=== PATIENT | female | born 1995 | race Caucasian/White ===

== ENCOUNTER 2021-03-16 06:21 | Inpatient (IN) | payer BC ==
[2021-03-16] MEDS ORDERED: Acetaminophen 325 MG Tab PO PRN (07:40)
[2021-03-16] MEDS ORDERED: Sodium Chloride 0.9% 10 ML Syringe FLUSH PRN ×2 (07:40→12:53)
[2021-03-16] MEDS ORDERED: Misoprostol 25 MCG (1/4 of 100 MCG) Tab PO ONE ×2 (07:46→10:00)
[2021-03-16] MEDS: Ondansetron 4 MG/2 ML SDV IV PRN ×2 (08:12→12:50)
[2021-03-16] MEDS ORDERED: Dextrose 5%-Lactated Ringers 1,000 ML IV SCH (08:15)
[2021-03-16] MEDS ORDERED: Penicillin G Potassium 5 MILLUNITS in Sodium Chloride 0.9% 100 ML IV ONE (09:45)
[2021-03-16] MEDS ORDERED: Misoprostol 25 MCG (1/4 of 100 MCG) Tab ONE (10:20)
[2021-03-16] MEDS ORDERED: Lactated Ringers 500 ML IV ONE (11:32)
[2021-03-16] MEDS ORDERED: diphenhydrAMINE 50 MG/ML SDV IVPUSH PRN ×2 (12:53)
[2021-03-16] MEDS ORDERED: Lactated Ringers 1,000 ML IV ONE (12:53)
[2021-03-16] MEDS ORDERED: ePHEDrine 50 MG/ML SDV IVPUSH PRN ×2 (12:53)
[2021-03-16] MEDS ORDERED: Naloxone 0.4 MG/ML SDV IVPUSH PRN (12:53)
[2021-03-16] MEDS ORDERED: Ropivacaine 200 MG in Premix Bag 1 BAG EPIDUR SCH (13:00)
[2021-03-16] MEDS ORDERED: Ropivacaine 100 ML ONE (13:41)
[2021-03-16] MEDS: Penicillin G Potassium 2.5 MILLUNITS in Sodium Chloride 0.9% 50 ML IV SCH ×2 (13:53→18:56)
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
--- NOTE | 2021-03-16 14:30 | PCM.PNLD ---
Labor Progress Note - VS & Meds Vital Signs: Last Vital Signs Temp 36.4 C 03/16/21 08:44 Pulse 106 H 03/16/21 09:24 Resp 16 03/16/21 07:41 BP 116/68 03/16/21 09:24 Pulse Ox 96 03/16/21 12:54 Active Medications: Current Medications Acetaminophen (Acetaminophen 325 Mg Tab) 650 mg PO Q4H PRN PRN Reason: Pain (Mild 1-3) and fever Last Admin: 03/16/21 11:39 Dose: 650 mg Documented by: Diphenhydramine HCl (Diphenhydramine 50 Mg/Ml Sdv) 25 mg IVPUSH Q6H PRN PRN Reason: Itching Diphenhydramine HCl (Diphenhydramine 50 Mg/Ml Sdv) 50 mg IVPUSH Q6H PRN PRN Reason: Itching Ephedrine Sulfate (Ephedrine 50 Mg/Ml Sdv) 10 mg IVPUSH ASDIRECTED PRN PRN Reason: Hypotension Dextrose/Lactated Ringer's (Dextrose 5%-Lactated Ringers) 1,000 mls @ 100 mls/hr IV ASDIRECTED [facility] Last Admin: 03/16/21 08:19 Dose: 100 mls/hr Documented by: Penicillin G Potassium 2.5 (millunits/ Sodium Chloride) 50 mls @ 100 mls/hr IV Q4H [facility] Last Admin: 03/16/21 13:53 Dose: 100 mls/hr Documented by: Ropivacaine 200 mg/ Premix 100 mls @ 0 mls/hr EPIDUR ASDIRECTED [facility] Naloxone HCl (Naloxone 0.4 Mg/Ml Sdv) 0.1 mg IVPUSH ASDIRECTED PRN PRN Reason: Oversedation Ondansetron HCl (Ondansetron 4 Mg/2 Ml Sdv) 4 mg IV Q4H PRN PRN Reason: Nausea/Vomiting Last Admin: 03/16/21 12:50 Dose: 4 mg Documented by: Sodium Chloride (Sodium Chloride 0.9% 10 Ml Syringe) 10 ml FLUSH ASDIRECTED PRN PRN Reason: Keep Vein Open Sodium Chloride (Sodium Chloride 0.9% 10 Ml Syringe) 10 ml FLUSH ASDIRECTED PRN PRN Reason: Keep Vein Open Discontinued Medications Penicillin G Potassium 5 (millunits/ Sodium Chloride) 100 mls @ 200 mls/hr IV ONETIME ONE Stop: 03/16/21 10:14 Last Admin: 03/16/21 09:56 Dose: 200 mls/hr Documented by: Lactated Ringer's (Ringers, Lactated) 500 mls @ 999 mls/hr IV BOLUS ONE Stop: 03/16/21 12:02 Last Admin: 03/16/21 11:36 Dose: 999 mls/hr Documented by: Lactated Ringer's (Ringers, Lactated) 1,000 mls @ 999 mls/hr IV .BOLUS ONE Stop: 03/16/21 13:53 Last Admin: 03/16/21 13:07 Dose: 999 mls/hr Documented by: Ropivacaine (Naropin 0.2%) Confirm Administered Dose 100 mls @ as directed .ROUTE .STK-MED ONE Stop: 03/16/21 13:42 Misoprostol (Misoprostol 25 Mcg (1/4 Of 100 Mcg) Tab) 25 mcg PO ONETIME ONE Stop: 03/16/21 07:47 Last Admin: 03/16/21 08:16 Dose: 25 mcg Documented by: Misoprostol (Misoprostol 25 Mcg (1/4 Of 100 Mcg) Tab) 25 mcg PO ONETIME ONE Stop: 03/16/21 10:01 Last Admin: 03/16/21 10:23 Dose: 25 mcg Documented by: Misoprostol (Misoprostol 25 Mcg (1/4 Of 100 Mcg) Tab) Confirm Administered Dose 25 mcg .ROUTE .STK-MED ONE Stop: 03/16/21 10:21 Last Admin: 03/16/21 11:17 Dose: Not Given Documented by: - Uterine Contractions Uterine Monitoring Mode: External [place] Contraction Frequency (min): 0.5 - 5 Contraction Duration (sec): 30 - 55 Contraction Intensity: Mild Uterine Resting Tone: Soft Other Uterine Monitoring: Novii adjusted to mixing picker tender uterine contractions - Monitoring Monitor Mode: Wireless Heart Rate (FHR) Baseline: 145 Heart Rate (FHR) Variability: Moderate (6-25 bpm) Accelerations: Present, 15x15 Decelerations: None Strip Review: Category I - Vaginal Exam Dilation (cm): 5 Effacement (Percent): 80 Station: -1 Cervical Position: Midposition Sterile Vaginal Exam Performed By: Shirin Landers - Labor Progress (Free Text) Labor Progress: 03/16/2021 Patient requested an epidural and after comfortable SVE done SVE- AROM of forebag done with patient consent for clear fluid FHTs category one patient comfortable and at bedside Plan- Continue to monitor labor Continue to monitor FHTs Continue epidural for pain management Plan and anticipate a vaginal delivery
[2021-03-16] MEDS ORDERED: Lactated Ringers 1,000 ML IV SCH (16:00)
--- NOTE | 2021-03-16 16:28 | ANES ---
DATE OF SERVICE: 03/16/2021 INDICATION: I was called by the labor department regarding a young lady requesting a labor epidural. I was at the bedside at approximately 1315. A brief history and physical was done with the patient. The patient is overall healthy. She is not on any blood thinners. She does not have any significant health problems. She is allergic to bees. No drug allergies. Risks and benefits including spinal headache, intravascular injection of local anesthetic, and infection were reviewed with the patient. The patient verbalizes her understandings of the risks and benefits and wishes to proceed with the labor epidural at this time. TECHNIQUE: The patient was sat at the edge of the bed. Betadine prep x3 to the lumbar region was done. Sterile drape was placed. 1% lidocaine skin wheal and deep was done. A 17-gauge Tuohy needle was inserted at approximately the L4-L5 position. Loss of resistance was easily achieved. Negative paresthesia, negative heme, negative CSF were noted. Loss of resistance was at approximately 8 cm. Catheter was then threaded through the Touhy needle without difficulty. The Tuohy needle was then taken out. Catheter was pulled back and secured at approximately 16 cm. The patient tolerated that without difficulty. After catheter was secured, they gave a 5 mL test dose. The patient was then laid down in the supine position with left uterine displacement and head of bed slightly elevated. After several minutes, the patient showed no signs of intravascular injection of local anesthetic or subarachnoid block. I then proceeded to give the patient 12 mL of 0.2% ropivacaine bolus via the epidural and started her on a 0.2% ropivacaine drip at 12 mL an hour via the epidural. The patient tolerated the bolus. Heart rate was good. Blood pressure was good after bolus. The patient was having some relief but mostly on the left. Said after about 30 minutes or so her onto the right side, but she was getting a little numbness and tingling on that right side also. We will be available as needed for the patient. [place] Vee CRNA /[id number]
--- NOTE | 2021-03-16 16:32 | PCM.PNLD ---
Labor Progress Note - VS & Meds Vital Signs: Last Vital Signs Temp 97.5 F 03/16/21 08:44 Pulse 101 H 03/16/21 14:52 Resp 16 03/16/21 07:41 BP 116/62 03/16/21 14:52 Pulse Ox 96 03/16/21 12:54 Active Medications: Current Medications Acetaminophen (Acetaminophen 325 Mg Tab) 650 mg PO Q4H PRN PRN Reason: Pain (Mild 1-3) and fever Last Admin: 03/16/21 11:39 Dose: 650 mg Documented by: Diphenhydramine HCl (Diphenhydramine 50 Mg/Ml Sdv) 25 mg IVPUSH Q6H PRN PRN Reason: Itching Diphenhydramine HCl (Diphenhydramine 50 Mg/Ml Sdv) 50 mg IVPUSH Q6H PRN PRN Reason: Itching Ephedrine Sulfate (Ephedrine 50 Mg/Ml Sdv) 10 mg IVPUSH ASDIRECTED PRN PRN Reason: Hypotension Penicillin G Potassium 2.5 (millunits/ Sodium Chloride) 50 mls @ 100 mls/hr IV Q4H [facility] Last Admin: 03/16/21 13:53 Dose: 100 mls/hr Documented by: Ropivacaine 200 mg/ Premix 100 mls @ 0 mls/hr EPIDUR ASDIRECTED [facility] Lactated Ringer's (Ringers, Lactated) 1,000 mls @ 100 mls/hr IV ASDIRECTED [facility] Last Admin: 03/16/21 15:57 Dose: 100 mls/hr Documented by: Oxytocin/Sodium Chloride (Pitocin In Ns 20 Units/1,000 Ml) 20 unit in 1,000 mls @ 3 mls/hr IV TITRATE [facility]; Protocol Naloxone HCl (Naloxone 0.4 Mg/Ml Sdv) 0.1 mg IVPUSH ASDIRECTED PRN PRN Reason: Oversedation Ondansetron HCl (Ondansetron 4 Mg/2 Ml Sdv) 4 mg IV Q4H PRN PRN Reason: Nausea/Vomiting Last Admin: 03/16/21 12:50 Dose: 4 mg Documented by: Sodium Chloride (Sodium Chloride 0.9% 10 Ml Syringe) 10 ml FLUSH ASDIRECTED PRN PRN Reason: Keep Vein Open Sodium Chloride (Sodium Chloride 0.9% 10 Ml Syringe) 10 ml FLUSH ASDIRECTED PRN PRN Reason: Keep Vein Open Discontinued Medications Dextrose/Lactated Ringer's (Dextrose 5%-Lactated Ringers) 1,000 mls @ 100 mls/hr IV ASDIRECTED [facility] Last Admin: 03/16/21 08:19 Dose: 100 mls/hr Documented by: Penicillin G Potassium 5 (millunits/ Sodium Chloride) 100 mls @ 200 mls/hr IV ONETIME ONE Stop: 03/16/21 10:14 Last Admin: 03/16/21 09:56 Dose: 200 mls/hr Documented by: Lactated Ringer's (Ringers, Lactated) 500 mls @ 999 mls/hr IV BOLUS ONE Stop: 03/16/21 12:02 Last Admin: 03/16/21 11:36 Dose: 999 mls/hr Documented by: Lactated Ringer's (Ringers, Lactated) 1,000 mls @ 999 mls/hr IV .BOLUS ONE Stop: 03/16/21 13:53 Last Admin: 03/16/21 13:07 Dose: 999 mls/hr Documented by: Ropivacaine (Naropin 0.2%) Confirm Administered Dose 100 mls @ as directed .ROUTE .STK-MED ONE Stop: 03/16/21 13:42 Misoprostol (Misoprostol 25 Mcg (1/4 Of 100 Mcg) Tab) 25 mcg PO ONETIME ONE Stop: 03/16/21 07:47 Last Admin: 03/16/21 08:16 Dose: 25 mcg Documented by: Misoprostol (Misoprostol 25 Mcg (1/4 Of 100 Mcg) Tab) 25 mcg PO ONETIME ONE Stop: 03/16/21 10:01 Last Admin: 03/16/21 10:23 Dose: 25 mcg Documented by: Misoprostol (Misoprostol 25 Mcg (1/4 Of 100 Mcg) Tab) Confirm Administered Dose 25 mcg .ROUTE .STK-MED ONE Stop: 03/16/21 10:21 Last Admin: 03/16/21 11:17 Dose: Not Given Documented by: - Uterine Contractions Uterine Monitoring Mode: External [place] Contraction Frequency (min): 1.5-4 Contraction Duration (sec): 40-65 Contraction Intensity: Mild Uterine Resting Tone: Soft Other Uterine Monitoring: changed battery - Monitoring Monitor Mode: Wireless Heart Rate (FHR) Baseline: 140 Heart Rate (FHR) Variability: Moderate (6-25 bpm) Accelerations: Present, 15x15 Decelerations: None Strip Review: Category I - Vaginal Exam Dilation (cm): 9 Effacement (Percent): 95 Station: -1 Cervical Position: Anterior Sterile Vaginal Exam Performed By: Venancio White - Labor Progress (Free Text) Labor Progress: 03/16/2021 At 1600, contractions had spaced to every 5 minutes. SVE was /-1. EFM shows baseline of 135bpm with moderate variability, positive for accelerations, no decelerations, and contractions every 3-5 minutes. She continues to leak clear fluid. VSS. Pt is resting comfortably with an epidural and her is here for support. Plan: Continue to monitor pain control with the epidural in place Continue to monitor IV intake and output to ensure adequate hydration Continue to monitor heart tones. Start pitocin per protocol and monitor frequency of contractions Labor down to allow descent into the pelvis, recheck station in one hour. Continue to monitor labor progress.
[2021-03-16] MEDS ORDERED: Misoprostol 200 MCG Tab ONE (19:02)
[2021-03-16] MEDS ORDERED: Methylergonovine 0.2 MG/1 ML Amp ONE (19:03)
[2021-03-16] MEDS ORDERED: Carboprost Tromethamine 250 MCG/1 ML Amp ONE (19:03)
[2021-03-16] MEDS ORDERED: Ibuprofen 200 MG Tab, 24 Tab Bulk Bottle PO PRN (20:26)
[2021-03-16] MEDS ORDERED: Witch Hazel Medicated Pads 100/Jar TOP ONE (20:26)
[2021-03-16] MEDS ORDERED: Lanolin 100% Cream 40 GM Tube TOP ONE (20:26)
[2021-03-16] MEDS ORDERED: Benzocaine 20% Top Spray 56 GM Bottle TOP ONE (20:26)
[2021-03-16] MEDS ORDERED: Acetaminophen 325 MG Tab, 50 Tab Bulk Bottle PO PRN (20:26)
[2021-03-16] MEDS ORDERED: Docusate Sodium 100 MG Cap PO PRN (20:26)
--- NOTE | 2021-03-17 08:27 | PCM.DEL ---
<Lorena White A - Last Filed: 03/17/21 08:21> L & D Note - General Info Date of Service: 03/16/21 - Delivery Note Labor: Augmented by Oxytocin, Induced by ARM Cervical Ripening Method: Misoprostil Delivery Outcome: Livebirth Infant Delivery Method: Spontaneous Vaginal Delivery-Single Delivery Mode: Manual Presentation: Left Occiput Anterior (ROMMEL) Nuchal Cord: None Anesthesia Type: Epidural Amniotic Fluid Description: Purulent Episiotomy Type: None Laceration: 2nd Degree, Perineal Suture type: Vicryl Suture size: 3-0 Placenta: Intact, Spontaneous Cord: 3 Vessels Resuscitation Needed: No : Bulb Syringe, Stimulated, [place] Used Provider: Shirin Keita Score 1 min: 8 Score 5 min: 9 Second Stage Interventions: Reports: Second Nurse Assessed Progress of Descent, Second Nurse Reviewed Contraction Pattern, Second Nurse Reviewed Heart Tones, Encouragement Given, Laboring Down, Pushing, Stirrups/Leg Supports - General Info Date of Service: 03/16/21 Admission Dx/Problem (Free Text): Normal Spontaneous Vaginal Delivery Functional Status: Reports: Pain Controlled, Tolerating Diet, Ambulating, Urinating - Review of Systems General: Reports: No Symptoms HEENT: Reports: No Symptoms Pulmonary: Reports: No Symptoms Cardiovascular: Reports: No Symptoms Gastrointestinal: Reports: Diarrhea, Nausea, Vomiting Genitourinary: Reports: No Symptoms Musculoskeletal: Reports: No Symptoms Skin: Reports: Pallor Neurological: Reports: No Symptoms Psychiatric: Reports: No Symptoms - Patient Data Vitals - Most Recent: Last Vital Signs Temp 97.7 F 03/17/21 03:33 Pulse 77 03/17/21 03:33 Resp 16 03/17/21 03:33 BP 103/47 L 03/17/21 03:33 Pulse Ox 98 03/17/21 03:33 Weight - Most Recent: 99.79 kg I&O - Last 24 Hours: Intake & Output 03/16/21 03/17/21 03/17/21 22:59 06:59 14:59 Output Total 1100 Balance -1100 Lab Results Last 24 Hours: Laboratory Results - last 24 hr 03/17/21 03/17/21 Range/Units 05:40 05:40 WBC 9.7 (4.5-11.0) K/uL RBC 3.48 (3.30-5.50) M/uL Hgb 10.1 L D (12.0-15.0) g/dL Hct 30.8 L (36.0-48.0) % MCV 89 (80-98) fL MCH 29 (27-31) pg MCHC 33 (32-36) % Plt Count 213 (150-400) K/uL Neut % (Auto) 72.0 H (36-66) % Lymph % (Auto) 15.1 L (24-44) % Lyman % (Auto) 12.3 H (2-6) % Eos % (Auto) 0.5 L (2-4) % Baso % (Auto) 0.1 (0-1) % Sodium 135 L (140-148) mmol/L Potassium 3.9 (3.6-5.2) mmol/L Chloride 104 (100-108) mmol/L Carbon Dioxide 22 (21-32) mmol/L Anion Gap 12.9 (5.0-14.0) mmol/L BUN 4 L D (7-18) mg/dL Creatinine 0.5 L (0.6-1.0) mg/dL Est Cr Clr Drug Dosing 187.61 mL/min Estimated GFR (MDRD) > 60 (>60) Glucose 78 (74-106) mg/dL Calcium 7.2 L (8.5-10.1) mg/dL Total Bilirubin 0.2 (0.2-1.0) mg/dL AST 24 (15-37) U/L ALT 21 (12-78) U/L Alkaline Phosphatase 89 (46-116) U/L Total Protein 4.2 L (6.4-8.2) g/dL Albumin 1.7 L (3.4-5.0) g/dL Globulin 2.5 (2.3-3.5) g/dL Albumin/Globulin Ratio 0.7 L (1.2-2.2) Med Orders - Current: Current Medications Acetaminophen (Acetaminophen 325 Mg Tab) 650 mg PO Q4H PRN PRN Reason: Pain (Mild 1-3) and fever Last Admin: 03/16/21 11:39 Dose: 650 mg Documented by: Acetaminophen (Acetaminophen 325 Mg Tab, 50 Tab Bulk Bottle) 325 - 650 mg PO Q4H PRN PRN Reason: Pain Last Admin: 03/16/21 21:46 Dose: 1 bottle Documented by: Diphenhydramine HCl (Diphenhydramine 50 Mg/Ml Sdv) 25 mg IVPUSH Q6H PRN PRN Reason: Itching Diphenhydramine HCl (Diphenhydramine 50 Mg/Ml Sdv) 50 mg IVPUSH Q6H PRN PRN Reason: Itching Docusate Sodium (Docusate Sodium 100 Mg Cap) 100 mg PO BID PRN PRN Reason: Constipation Ephedrine Sulfate (Ephedrine 50 Mg/Ml Sdv) 10 mg IVPUSH ASDIRECTED PRN PRN Reason: Hypotension Ropivacaine 200 mg/ Premix 100 mls @ 0 mls/hr EPIDUR ASDIRECTED [facility] Last Admin: 03/16/21 19:06 Dose: 12 mls/hr Documented by: Lactated Ringer's (Ringers, Lactated) 1,000 mls @ 100 mls/hr IV ASDIRECTED [facility] Last Admin: 03/16/21 15:57 Dose: 100 mls/hr Documented by: Oxytocin/Sodium Chloride (Pitocin In Ns 20 Units/1,000 Ml) 20 unit in 1,000 mls @ 3 mls/hr IV TITRATE [facility]; Protocol Last Admin: 03/16/21 17:31 Dose: 3 munits/min, 9 mls/hr Documented by: Ibuprofen (Ibuprofen 200 Mg Tab, 24 Tab Bulk Bottle) 600 mg PO Q6H PRN PRN Reason: Pain Last Admin: 03/16/21 21:45 Dose: 1 bottle Documented by: Lactobacillus Rhamnosus (Lactobacillus Rhamnosus Gg (Probiotic) Cap) 1 cap PO DAILY ASHANTI Naloxone HCl (Naloxone 0.4 Mg/Ml Sdv) 0.1 mg IVPUSH ASDIRECTED PRN PRN Reason: Oversedation Ondansetron HCl (Ondansetron 4 Mg/2 Ml Sdv) 4 mg IV Q4H PRN PRN Reason: Nausea/Vomiting Last Admin: 03/16/21 12:50 Dose: 4 mg Documented by: Prenat Multivit/[place]/Iron/Folic Ac ( Multivitamin With Calcium/Folic Acid/Iron Tab) 1 each PO DAILY [facility] Sodium Chloride (Sodium Chloride 0.9% 10 Ml Syringe) 10 ml FLUSH ASDIRECTED PRN PRN Reason: Keep Vein Open Sodium Chloride (Sodium Chloride 0.9% 10 Ml Syringe) 10 ml FLUSH ASDIRECTED PRN PRN Reason: Keep Vein Open Discontinued Medications Benzocaine (Benzocaine 20% Top [place] 56 Gm Bottle) 0 gm TOP ONETIME ONE Stop: 03/16/21 20:27 Last Admin: 03/16/21 21:44 Dose: 56 gm Documented by: Carboprost Tromethamine (Carboprost Tromethamine 250 Mcg/1 Ml Amp) Confirm Administered Dose 250 mcg .ROUTE .STK-MED ONE Stop: 03/16/21 19:04 Last Admin: 03/16/21 21:07 Dose: Not Given Documented by: Emollient Ointment (Lanolin 100% Cream 40 Gm Tube) 0 gm TOP ONETIME ONE Stop: 03/16/21 20:27 Last Admin: 03/16/21 21:44 Dose: 40 gm Documented by: Dextrose/Lactated Ringer's (Dextrose 5%-Lactated Ringers) 1,000 mls @ 100 mls/hr IV ASDIRECTED [facility] Last Admin: 03/16/21 08:19 Dose: 100 mls/hr Documented by: Penicillin G Potassium 5 (millunits/ Sodium Chloride) 100 mls @ 200 mls/hr IV ONETIME ONE Stop: 03/16/21 10:14 Last Admin: 03/16/21 09:56 Dose: 200 mls/hr Documented by: Penicillin G Potassium 2.5 (millunits/ Sodium Chloride) 50 mls @ 100 mls/hr IV Q4H [facility] Last Admin: 03/16/21 18:56 Dose: 100 mls/hr Documented by: Lactated Ringer's (Ringers, Lactated) 500 mls @ 999 mls/hr IV BOLUS ONE Stop: 03/16/21 12:02 Last Admin: 03/16/21 11:36 Dose: 999 mls/hr Documented by: Lactated Ringer's (Ringers, Lactated) 1,000 mls @ 999 mls/hr IV .BOLUS ONE Stop: 03/16/21 13:53 Last Admin: 03/16/21 13:07 Dose: 999 mls/hr Documented by: Ropivacaine (Naropin 0.2%) Confirm Administered Dose 100 mls @ as directed .ROUTE .STK-MED ONE Stop: 03/16/21 13:42 Methylergonovine Maleate (Methylergonovine 0.2 Mg/1 Ml Amp) Confirm Administered Dose 0.2 mg .ROUTE .STK-MED ONE Stop: 03/16/21 19:04 Last Admin: 03/16/21 21:08 Dose: Not Given Documented by: Misoprostol (Misoprostol 25 Mcg (1/4 Of 100 Mcg) Tab) 25 mcg PO ONETIME ONE Stop: 03/16/21 07:47 Last Admin: 03/16/21 08:16 Dose: 25 mcg Documented by: Misoprostol (Misoprostol 25 Mcg (1/4 Of 100 Mcg) Tab) 25 mcg PO ONETIME ONE Stop: 03/16/21 10:01 Last Admin: 03/16/21 10:23 Dose: 25 mcg Documented by: Misoprostol (Misoprostol 25 Mcg (1/4 Of 100 Mcg) Tab) Confirm Administered Dose 25 mcg .ROUTE .STK-MED ONE Stop: 03/16/21 10:21 Last Admin: 03/16/21 11:17 Dose: Not Given Documented by: Misoprostol (Misoprostol 200 Mcg Tab) Confirm Administered Dose 800 mcg .ROUTE .STK-MED ONE Stop: 03/16/21 19:03 Last Admin: 03/16/21 21:07 Dose: Not Given Documented by: Christel Borden (Witch Suha Medicated Pads 100/Jar) 1 pad TOP ONETIME ONE Stop: 03/16/21 20:27 Last Admin: 03/16/21 21:45 Dose: 1 pad Documented by: - Exam Urinary Catheter Total Time: 0Days 7Hours General: Alert, Oriented HEENT: Pupils Equal, Pupils Reactive, Mucous Membr. Moist/[place] Neck: Supple Lungs: Clear to Auscultation, Normal Respiratory Effort Cardiovascular: Regular Rate, Regular Rhythm, No Murmurs GI/Abdominal Exam: Normal Bowel Sounds, Soft, Non-Tender (Female) Exam: Normal External Exam Back Exam: Normal Inspection, Full Range of Motion Extremities: Normal Inspection, Normal Range of Motion, Non-Tender, No Pedal Edema, Normal Capillary Refill Skin: Warm, Dry, Intact Neurological: No New Focal Deficit Psy/Mental Status: Alert, Normal Affect, Normal Mood - Problem List & Annotations (1) (normal spontaneous vaginal delivery) SNOMED Code(s): 05999122, 551592632 Code(s): O80 - ENCOUNTER FOR FULL-TERM UNCOMPLICATED DELIVERY Status: Acute Current Visit: Yes (2) Perineal laceration SNOMED Code(s): 716204806 Code(s): WVK2398 - Status: Acute Current Visit: Yes (3) (infant) SNOMED Code(s): 120873385 Code(s): Z78.9 - OTHER SPECIFIED HEALTH STATUS Status: Acute Current Visit: Yes (4) Diarrhea SNOMED Code(s): 79137905 Code(s): R19.7 - DIARRHEA, UNSPECIFIED Status: Acute Current Visit: Yes (5) Elevated WBC count SNOMED Code(s): 461157539, 190716191 Code(s): D72.829 - ELEVATED WHITE BLOOD CELL COUNT, UNSPECIFIED Status: Acute Current Visit: Yes (6) Nausea and vomiting SNOMED Code(s): 33635814 Code(s): R11.2 - NAUSEA WITH VOMITING, UNSPECIFIED Status: Acute Current Visit: Yes (7) SNOMED Code(s): 52180984 Code(s): Z34.90 - ENCNTR FOR SUPRVSN OF NORMAL , UNSP, UNSP TRIMESTER Status: Acute Current Visit: Yes Qualifiers: Weeks of gestation: 39 weeks Qualified Code(s): Z3A.39 - 39 weeks gestation of (8) SROM (spontaneous rupture of membranes) SNOMED Code(s): 022770660 Code(s): VYY0101 - Status: Acute Current Visit: Yes - My Orders Last 24 Hours: My Active Orders 03/16/21 16:15 Oxytocin/Normal Saline [Pitocin in NS 20 Units/1,000 ML] 20 unit in 1,000 ml IV TITRATE - Assessment Assessment:: 03/16/21 Iva is a 25 year old G1 now P1 who delivered at 39 weeks 0 days gestation. She came in this morning at about 0400 with spontaneous rupture of membranes, clear fluid. She has been experiencing on and off nausea, vomiting, and diarrhea for the past week, for which she was evaluated and started antibiotics last night. She presents today with no fever but continued GI upset. Her course of labor progressed today with a total of 2 doses of oral cytotec, pitocin titrated per protocol, and AROM of a forebag for clear fluid. At 1600 she was 9/95/-1 and comfortable with an epidural so she labored down for about an hour. At 1715 she was complete but still -1/0 station with some caput and continued to labor down. heart tones were category 1 up until this point. At 175, she began pushing and EFM showed occasional variables. Due to variables, pushing was stopped for 15 minutes with mom on her right side, and O2 to allow baby to recover. When pushing restarted, FHT were again category 1 and pushing was more effective. Iva was pushing in McRobert's position due to supspected LGA fe tus, and perineum was massaged and lubricated as baby began to crown. Baby boy was born at 1937 with apgars 8 and 9 by . He weighed 9lbs 6oz. The placenta was expressed spontaneously at 1949 and was intact with a 3 vessel cord. A 2nd degree perineal laceration was repaired in usual fashion. EBL was 250mL Post delivery, Iva was transferred to a recovery room in stable condition and baby stayed rooming in with parents in stable condition. Stages of labor: 1st stage: 1481-4124 2nd stage: 4946-9804 3rd stage: 9765-5382 - Plan Plan:: 03/16/2021 25 yo here at 39 0/7 weeks with SROM. Patient had been here last evening with nausea and vomiting and had went home after IV fluids and zofran and contractions had stopped and she felt better, then at 0430 her water broke at home and she called and was directed to come back in to labor and delivery. On arrival patient had positive Amnisure SVE was unchanged from night before Patient was still struggling with nausea and vomiting FHTs category one Labs-AB positive, Hep B neg, Hep C neg, HIV neg, RPR nonreactive, Rubella Immune, GBS negative WBC-18.0 Plan- Monitor for active labor Monitor FHTs Start D5LR for dehydration Oral cytotec times two doses Pain management per patient request Plan and anticipate a vaginal delivery 03/17/21 Routine cares Encourage and support Monitor bleeding closely Expect discharge in 48 hours due to high WBC CBC and BMP in AM <Shirin Keita - Last Filed: 03/17/21 09:07> L & D Note - General Info Mother's Due Date: 03/23/21 - Delivery Note Labor: Augmented by ARM, Induced by ARM Delivery Mode: Spontaneous (error placed manual) Second Stage Interventions: Reports: Pushing Effectively, Pushing, McRobert's Position Delivery Comments (Free Text/Narrative):: 03/16/21 Iva is a 25 year old G1 now P1 who delivered at 39 weeks 0 days gestation. She came in this morning at about 0400 with spontaneous rupture of membranes, clear fluid. She has been experiencing on and off nausea, vomiting, and diarrhea for the past week, for which she was evaluated and started antibiotics last night. She presents today with no fever but continued GI upset. Her course of labor progressed today with a total of 2 doses of oral cytotec, pitocin titrated per protocol, and AROM of a forebag for clear fluid. At 1600 she was 9/95/-1 and comfortable with an epidural so she labored down for about an hour. At 1715 she was complete but still -1/0 station with some caput and continued to labor down. heart tones were category 1 up until this point. At 1750, she began pushing and EFM showed occasional variables. Due to variables, pushing was stopped for 15 minutes with mom on her right side, and O2 to allow baby to recover. When pushing restarted, FHT were again category 1 and pushing was more effective. Iva was pushing in McRobert's position due to supspected LGA fetus , and perineum was massaged and lubricated as baby began to crown. Baby boy was born at 193 with apgars 8 and 9 by . He weighed 9lbs 6oz. The placenta was expressed spontaneously at 1949 and was intact with a 3 vessel cord. A 2nd degree perineal laceration was repaired in usual fashion. EBL was 250mL Post delivery, Iva was transferred to a recovery room in stable condition and baby stayed rooming in with parents in stable condition. Stages of labor: 1st stage: 3544-9820 2nd stage: 3127-8137 3rd stage: 8584-4765 - Review of Systems General: Reports: Weakness, Fatigue - Patient Data Vitals - Most Recent: Last Vital Signs Temp 36.5 C 03/17/21 03:33 Pulse 77 03/17/21 03:33 Resp 16 03/17/21 03:33 BP 103/47 L 03/17/21 03:33 Pulse Ox 98 03/17/21 03:33 I&O - Last 24 Hours: Intake & Output 03/16/21 03/17/21 03/17/21 22:59 06:59 14:59 Output Total 1100 Balance -1100 Lab Results Last 24 Hours: Laboratory Results - last 24 hr 03/17/21 03/17/21 Range/Units 05:40 05:40 WBC 9.7 (4.5-11.0) K/uL RBC 3.48 (3.30-5.50) M/uL Hgb 10.1 L D (12.0-15.0) g/dL Hct 30.8 L (36.0-48.0) % MCV 89 (80-98) fL MCH 29 (27-31) pg MCHC 33 (32-36) % Plt Count 213 (150-400) K/uL Neut % (Auto) 72.0 H (36-66) % Lymph % (Auto) 15.1 L (24-44) % Lyman % (Auto) 12.3 H (2-6) % Eos % (Auto) 0.5 L (2-4) % Baso % (Auto) 0.1 (0-1) % Sodium 135 L (140-148) mmol/L Potassium 3.9 (3.6-5.2) mmol/L Chloride 104 (100-108) mmol/L Carbon Dioxide 22 (21-32) mmol/L Anion Gap 12.9 (5.0-14.0) mmol/L BUN 4 L D (7-18) mg/dL Creatinine 0.5 L (0.6-1.0) mg/dL Est Cr Clr Drug Dosing 187.61 mL/min Estimated GFR (MDRD) > 60 (>60) Glucose 78 (74-106) mg/dL Calcium 7.2 L (8.5-10.1) mg/dL Total Bilirubin 0.2 (0.2-1.0) mg/dL AST 24 (15-37) U/L ALT 21 (12-78) U/L Alkaline Phosphatase 89 (46-116) U/L Total Protein 4.2 L (6.4-8.2) g/dL Albumin 1.7 L (3.4-5.0) g/dL Globulin 2.5 (2.3-3.5) g/dL Albumin/Globulin Ratio 0.7 L (1.2-2.2) Med Orders - Current: Current Medications Acetaminophen (Acetaminophen 325 Mg Tab) 650 mg PO Q4H PRN PRN Reason: Pain (Mild 1-3) and fever Last Admin: 03/16/21 11:39 Dose: 650 mg Documented by: Acetaminophen (Acetaminophen 325 Mg Tab, 50 Tab Bulk Bottle) 325 - 650 mg PO Q4H PRN PRN Reason: Pain Last Admin: 03/16/21 21:46 Dose: 1 bottle Documented by: Diphenhydramine HCl (Diphenhydramine 50 Mg/Ml Sdv) 25 mg IVPUSH Q6H PRN PRN Reason: Itching Diphenhydramine HCl (Diphenhydramine 50 Mg/Ml Sdv) 50 mg IVPUSH Q6H PRN PRN Reason: Itching Docusate Sodium (Docusate Sodium 100 Mg Cap) 100 mg PO BID PRN PRN Reason: Constipation Ephedrine Sulfate (Ephedrine 50 Mg/Ml Sdv) 10 mg IVPUSH ASDIRECTED PRN PRN Reason: Hypotension Ropivacaine 200 mg/ Premix 100 mls @ 0 mls/hr EPIDUR ASDIRECTED [facility] Last Admin: 03/16/21 19:06 Dose: 12 mls/hr Documented by: Lactated Ringer's (Ringers, Lactated) 1,000 mls @ 100 mls/hr IV ASDIRECTED [facility] Last Admin: 03/16/21 15:57 Dose: 100 mls/hr Documented by: Oxytocin/Sodium Chloride (Pitocin In Ns 20 Units/1,000 Ml) 20 unit in 1,000 mls @ 3 mls/hr IV TITRATE [facility]; Protocol Last Admin: 03/16/21 17:31 Dose: 3 munits/min, 9 mls/hr Documented by: Ibuprofen (Ibuprofen 200 Mg Tab, 24 Tab Bulk Bottle) 600 mg PO Q6H PRN PRN Reason: Pain Last Admin: 03/16/21 21:45 Dose: 1 bottle Documented by: Lactobacillus Rhamnosus (Lactobacillus Rhamnosus Gg (Probiotic) Cap) 1 cap PO DAILY ASHANTI Naloxone HCl (Naloxone 0.4 Mg/Ml Sdv) 0.1 mg IVPUSH ASDIRECTED PRN PRN Reason: Oversedation Ondansetron HCl (Ondansetron 4 Mg/2 Ml Sdv) 4 mg IV Q4H PRN PRN Reason: Nausea/Vomiting Last Admin: 03/16/21 12:50 Dose: 4 mg Documented by: [place] Multivit/[place]/Iron/Folic Ac ( Multivitamin With Calcium/Folic Acid/Iron Tab) 1 each PO DAILY ASHANTI Sodium Chloride (Sodium Chloride 0.9% 10 Ml Syringe) 10 ml FLUSH ASDIRECTED PRN PRN Reason: Keep Vein Open Sodium Chloride (Sodium Chloride 0.9% 10 Ml Syringe) 10 ml FLUSH ASDIRECTED PRN PRN Reason: Keep Vein Open Discontinued Medications Benzocaine (Benzocaine 20% Top [place] 56 Gm Bottle) 0 gm TOP ONETIME ONE Stop: 03/16/21 20:27 Last Admin: 03/16/21 21:44 Dose: 56 gm Documented by: Carboprost Tromethamine (Carboprost Tromethamine 250 Mcg/1 Ml Amp) Confirm Administered Dose 250 mcg .ROUTE .STK-MED ONE Stop: 03/16/21 19:04 Last Admin: 03/16/21 21:07 Dose: Not Given Documented by: Emollient Ointment (Lanolin 100% Cream 40 Gm Tube) 0 gm TOP ONETIME ONE Stop: 03/16/21 20:27 Last Admin: 03/16/21 21:44 Dose: 40 gm Documented by: Dextrose/Lactated Ringer's (Dextrose 5%-Lactated Ringers) 1,000 mls @ 100 mls/hr IV ASDIRECTED [facility] Last Admin: 03/16/21 08:19 Dose: 100 mls/hr Documented by: Penicillin G Potassium 5 (millunits/ Sodium Chloride) 100 mls @ 200 mls/hr IV ONETIME ONE Stop: 03/16/21 10:14 Last Admin: 03/16/21 09:56 Dose: 200 mls/hr Documented by: Penicillin G Potassium 2.5 (millunits/ Sodium Chloride) 50 mls @ 100 mls/hr IV Q4H [facility] Last Admin: 03/16/21 18:56 Dose: 100 mls/hr Documented by: Lactated Ringer's (Ringers, Lactated) 500 mls @ 999 mls/hr IV BOLUS ONE Stop: 03/16/21 12:02 Last Admin: 03/16/21 11:36 Dose: 999 mls/hr Documented by: Lactated Ringer's (Ringers, Lactated) 1,000 mls @ 999 mls/hr IV .BOLUS ONE Stop: 03/16/21 13:53 Last Admin: 03/16/21 13:07 Dose: 999 mls/hr Documented by: Ropivacaine (Naropin 0.2%) Confirm Administered Dose 100 mls @ as directed .ROUTE .STK-MED ONE Stop: 03/16/21 13:42 Methylergonovine Maleate (Methylergonovine 0.2 Mg/1 Ml Amp) Confirm Administered Dose 0.2 mg .ROUTE .STK-MED ONE Stop: 03/16/21 19:04 Last Admin: 03/16/21 21:08 Dose: Not Given Documented by: Misoprostol (Misoprostol 25 Mcg (1/4 Of 100 Mcg) Tab) 25 mcg PO ONETIME ONE Stop: 03/16/21 07:47 Last Admin: 03/16/21 08:16 Dose: 25 mcg Documented by: Misoprostol (Misoprostol 25 Mcg (1/4 Of 100 Mcg) Tab) 25 mcg PO ONETIME ONE Stop: 03/16/21 10:01 Last Admin: 03/16/21 10:23 Dose: 25 mcg Documented by: Misoprostol (Misoprostol 25 Mcg (1/4 Of 100 Mcg) Tab) Confirm Administered Dose 25 mcg .ROUTE .STK-MED ONE Stop: 03/16/21 10:21 Last Admin: 03/16/21 11:17 Dose: Not Given Documented by: Misoprostol (Misoprostol 200 Mcg Tab) Confirm Administered Dose 800 mcg .ROUTE .STK-MED ONE Stop: 03/16/21 19:03 Last Admin: 03/16/21 21:07 Dose: Not Given Documented by: Christel Borden ([place] Suha Medicated Pads 100/Jar) 1 pad TOP ONETIME ONE Stop: 03/16/21 20:27 Last Admin: 03/16/21 21:45 Dose: 1 pad Documented by: - Exam General: Cooperative (Female) Exam: Normal Speculum Exam, Normal Bimanual Exam, Enlarged Uterus, Vaginal Bleeding Wound/Incisions: Healing Well - Problem List & Annotations (1) SNOMED Code(s): 71469426 Code(s): Z34.90 - ENCNTR FOR SUPRVSN OF NORMAL , UNSP, UNSP TRIMESTER Status: Acute Current Visit: Yes Qualifiers: Weeks of gestation: 39 weeks Qualified Code(s): Z3A.39 - 39 weeks gestation of (2) SROM (spontaneous rupture of membranes) SNOMED Code(s): 971412725 Code(s): XAN8297 - Status: Acute Current Visit: Yes (3) Nausea and vomiting SNOMED Code(s): 23204565 Code(s): R11.2 - NAUSEA WITH VOMITING, UNSPECIFIED Status: Acute Current Visit: Yes - Problem List Review Problem List Initiated/Reviewed/Updated: Yes - My Orders Last 24 Hours: My Active Orders 03/16/21 12:53 Communication Order [RC] ASDIRECTED Communication Order [RC] ROUTINE Communication Order [RC] ROUTINE Communication Order [RC] ROUTINE Oxygen Therapy [RC] ASDIRECTED Pulse Oximetry [RC] ASDIRECTED Vital Signs [RC] PER UNIT ROUTINE Naloxone [Narcan] 0.1 mg IVPUSH ASDIRECTED PRN Sodium Chloride 0.9% [Saline Flush] 10 ml FLUSH ASDIRECTED PRN diphenhydrAMINE [Benadryl] 25 mg IVPUSH Q6H PRN diphenhydrAMINE [Benadryl] 50 mg IVPUSH Q6H PRN ePHEDrine [ePHEDrine sulfate] 10 mg IVPUSH ASDIRECTED PRN Epidural Catheter Management [OM.PC] Routine Epidural Catheter Management [OM.PC] Urgent Peripheral IV Insertion Pediatric [OM.PC] Routine 03/16/21 12:54 Peripheral IV Care [RC] Q12H 03/16/21 13:00 Insert Urinary Catheter [OM.PC] ASDIRECTED Ropivacaine [Naropin 0.2%] 200 mg Premix Bag 1 bag EPIDUR ASDIRECTED 03/16/21 16:00 Lactated Ringers [Ringers, Lactated] 1,000 ml IV ASDIRECTED 03/16/21 20:26 May Shower [RC] ASDIRECTED Up ad Roselia [RC] ASDIRECTED Consult to Analytical Research Program Manager [CONS] Routine Acetaminophen [Tylenol Bulk Bottle] 325 - 650 mg PO Q4H PRN Docusate Sodium [Colace] 100 mg PO BID PRN Ibuprofen [Motrin Bulk Bottle] 600 mg PO Q6H PRN Assess Lochia [WOMSER] Per Unit Routine Assess Uterine Involution [WOMSER] Per Unit Routine 03/16/21 20:27 Patient Status [ADT] Routine Vital Signs [RC] PFP 03/16/21 20:28 Ice Therapy [OM.PC] Per Unit Routine Perineal Care [OM.PC] Per Unit Routine Sitz Bath [OM.PC] Per Unit Routine 03/17/21 09:00 Lactobacillus Rhamnosus GG [Culturelle] 1 cap PO DAILY Vit with Ca/FA/Iron [ Plus Iron] 1 each PO DAILY - Assessment Assessment:: error entered in wrong area of chart- Assessment- 03/16/2021 without complications LGA infant 2nd degree perineal laceration Fundus firm and bleeding decreasing
[2021-03-17] MEDS: Lactobacillus Rhamnosus GG (Probiotic) Cap PO SCH (09:13)
[2021-03-17] MEDS: Prenatal Multivitamin with Calcium/Folic Acid/Iron Tab PO SCH (09:13)
--- NOTE | 2021-03-17 09:20 | PCM.PNPP ---
<Lorena White - Last Filed: 03/17/21 09:15> - General Info Date of Service: 03/17/21 Admission Dx/Problem (Free Text): Functional Status: Reports: Pain Controlled - Review of Systems General: Reports: No Symptoms HEENT: Reports: No Symptoms Pulmonary: Reports: No Symptoms Cardiovascular: Reports: No Symptoms Gastrointestinal: Reports: Diarrhea Genitourinary: Reports: No Symptoms Musculoskeletal: Reports: No Symptoms Skin: Reports: No Symptoms Neurological: Reports: No Symptoms Psychiatric: Reports: No Symptoms - General Info Date of Service: 03/17/21 - Patient Data Vital Signs - Most Recent: Last Vital Signs Temp 97.7 F 03/17/21 03:33 Pulse 77 03/17/21 03:33 Resp 16 03/17/21 03:33 BP 103/47 L 03/17/21 03:33 Pulse Ox 98 03/17/21 03:33 Weight - Most Recent: 99.79 kg I&O - Last 24 Hours: Intake & Output 03/16/21 03/17/21 03/17/21 22:59 06:59 14:59 Output Total 1100 Balance -1100 Lab Results - Last 24 Hours: Laboratory Results - last 24 hr 03/17/21 03/17/21 Range/Units 05:40 05:40 WBC 9.7 (4.5-11.0) K/uL RBC 3.48 (3.30-5.50) M/uL Hgb 10.1 L D (12.0-15.0) g/dL Hct 30.8 L (36.0-48.0) % MCV 89 (80-98) fL MCH 29 (27-31) pg MCHC 33 (32-36) % Plt Count 213 (150-400) K/uL Neut % (Auto) 72.0 H (36-66) % Lymph % (Auto) 15.1 L (24-44) % [place] % (Auto) 12.3 H (2-6) % Eos % (Auto) 0.5 L (2-4) % Baso % (Auto) 0.1 (0-1) % Sodium 135 L (140-148) mmol/L Potassium 3.9 (3.6-5.2) mmol/L Chloride 104 (100-108) mmol/L Carbon Dioxide 22 (21-32) mmol/L Anion Gap 12.9 (5.0-14.0) mmol/L BUN 4 L D (7-18) mg/dL Creatinine 0.5 L (0.6-1.0) mg/dL Est Cr Clr Drug Dosing 187.61 mL/min Estimated GFR (MDRD) > 60 (>60) Glucose 78 (74-106) mg/dL Calcium 7.2 L (8.5-10.1) mg/dL Total Bilirubin 0.2 (0.2-1.0) mg/dL AST 24 (15-37) U/L ALT 21 (12-78) U/L Alkaline Phosphatase 89 (46-116) U/L Total Protein 4.2 L (6.4-8.2) g/dL Albumin 1.7 L (3.4-5.0) g/dL Globulin 2.5 (2.3-3.5) g/dL Albumin/Globulin Ratio 0.7 L (1.2-2.2) Med Orders - Current: Current Medications Acetaminophen (Acetaminophen 325 Mg Tab) 650 mg PO Q4H PRN PRN Reason: Pain (Mild 1-3) and fever Last Admin: 03/16/21 11:39 Dose: 650 mg Documented by: Acetaminophen (Acetaminophen 325 Mg Tab, 50 Tab Bulk Bottle) 325 - 650 mg PO Q4H PRN PRN Reason: Pain Last Admin: 03/16/21 21:46 Dose: 1 bottle Documented by: Diphenhydramine HCl (Diphenhydramine 50 Mg/Ml Sdv) 25 mg IVPUSH Q6H PRN PRN Reason: Itching Diphenhydramine HCl (Diphenhydramine 50 Mg/Ml Sdv) 50 mg IVPUSH Q6H PRN PRN Reason: Itching Docusate Sodium (Docusate Sodium 100 Mg Cap) 100 mg PO BID PRN PRN Reason: Constipation Ephedrine Sulfate (Ephedrine 50 Mg/Ml Sdv) 10 mg IVPUSH ASDIRECTED PRN PRN Reason: Hypotension Ropivacaine 200 mg/ Premix 100 mls @ 0 mls/hr EPIDUR ASDIRECTED ASHANTI Last Admin: 03/16/21 19:06 Dose: 12 mls/hr Documented by: Lactated Ringer's (Ringers, Lactated) 1,000 mls @ 100 mls/hr IV ASDIRECTED ASHANTI Last Admin: 03/16/21 15:57 Dose: 100 mls/hr Documented by: Oxytocin/Sodium Chloride (Pitocin In Ns 20 Units/1,000 Ml) 20 unit in 1,000 mls @ 3 mls/hr IV TITRATE ASHANTI; Protocol Last Admin: 03/16/21 17:31 Dose: 3 munits/min, 9 mls/hr Documented by: Ibuprofen (Ibuprofen 200 Mg Tab, 24 Tab Bulk Bottle) 600 mg PO Q6H PRN PRN Reason: Pain Last Admin: 03/16/21 21:45 Dose: 1 bottle Documented by: Lactobacillus Rhamnosus (Lactobacillus Rhamnosus Gg (Probiotic) Cap) 1 cap PO DAILY ASHANTI Last Admin: 03/17/21 09:13 Dose: 1 cap Documented by: Naloxone HCl (Naloxone 0.4 Mg/Ml Sdv) 0.1 mg IVPUSH ASDIRECTED PRN PRN Reason: Oversedation Ondansetron HCl (Ondansetron 4 Mg/2 Ml Sdv) 4 mg IV Q4H PRN PRN Reason: Nausea/Vomiting Last Admin: 03/16/21 12:50 Dose: 4 mg Documented by: Prenat Multivit/[place]/Iron/Folic Ac ( Multivitamin With Calcium/Folic Acid/Iron Tab) 1 each PO DAILY [facility] Last Admin: 03/17/21 09:13 Dose: 1 each Documented by: Sodium Chloride (Sodium Chloride 0.9% 10 Ml Syringe) 10 ml FLUSH ASDIRECTED PRN PRN Reason: Keep Vein Open Sodium Chloride (Sodium Chloride 0.9% 10 Ml Syringe) 10 ml FLUSH ASDIRECTED PRN PRN Reason: Keep Vein Open Discontinued Medications Benzocaine (Benzocaine 20% [place] 56 Gm Bottle) 0 gm TOP ONETIME ONE Stop: 03/16/21 20:27 Last Admin: 03/16/21 21:44 Dose: 56 gm Documented by: Carboprost Tromethamine (Carboprost Tromethamine 250 Mcg/1 Ml Amp) Confirm Administered Dose 250 mcg .ROUTE .STK-MED ONE Stop: 03/16/21 19:04 Last Admin: 03/16/21 21:07 Dose: Not Given Documented by: Emollient Ointment (Lanolin 100% Cream 40 Gm Tube) 0 gm TOP ONETIME ONE Stop: 03/16/21 20:27 Last Admin: 03/16/21 21:44 Dose: 40 gm Documented by: Dextrose/Lactated Ringer's (Dextrose 5%-Lactated Ringers) 1,000 mls @ 100 mls/hr IV ASDIRECTED [facility] Last Admin: 03/16/21 08:19 Dose: 100 mls/hr Documented by: Penicillin G Potassium 5 (millunits/ Sodium Chloride) 100 mls @ 200 mls/hr IV ONETIME ONE Stop: 03/16/21 10:14 Last Admin: 03/16/21 09:56 Dose: 200 mls/hr Documented by: Penicillin G Potassium 2.5 (millunits/ Sodium Chloride) 50 mls @ 100 mls/hr IV Q4H [facility] Last Admin: 03/16/21 18:56 Dose: 100 mls/hr Documented by: Lactated Ringer's (Ringers, Lactated) 500 mls @ 999 mls/hr IV BOLUS ONE Stop: 03/16/21 12:02 Last Admin: 03/16/21 11:36 Dose: 999 mls/hr Documented by: Lactated Ringer's (Ringers, Lactated) 1,000 mls @ 999 mls/hr IV .BOLUS ONE Stop: 03/16/21 13:53 Last Admin: 03/16/21 13:07 Dose: 999 mls/hr Documented by: Ropivacaine (Naropin 0.2%) Confirm Administered Dose 100 mls @ as directed .ROUTE .STK-MED ONE Stop: 03/16/21 13:42 Methylergonovine Maleate (Methylergonovine 0.2 Mg/1 Ml Amp) Confirm Administered Dose 0.2 mg .ROUTE .STK-MED ONE Stop: 03/16/21 19:04 Last Admin: 03/16/21 21:08 Dose: Not Given Documented by: Misoprostol (Misoprostol 25 Mcg (1/4 Of 100 Mcg) Tab) 25 mcg PO ONETIME ONE Stop: 03/16/21 07:47 Last Admin: 03/16/21 08:16 Dose: 25 mcg Documented by: Misoprostol (Misoprostol 25 Mcg (1/4 Of 100 Mcg) Tab) 25 mcg PO ONETIME ONE Stop: 03/16/21 10:01 Last Admin: 03/16/21 10:23 Dose: 25 mcg Documented by: Misoprostol (Misoprostol 25 Mcg (1/4 Of 100 Mcg) Tab) Confirm Administered Dose 25 mcg .ROUTE .STK-MED ONE Stop: 03/16/21 10:21 Last Admin: 03/16/21 11:17 Dose: Not Given Documented by: Misoprostol (Misoprostol 200 Mcg Tab) Confirm Administered Dose 800 mcg .ROUTE .STK-MED ONE Stop: 03/16/21 19:03 Last Admin: 03/16/21 21:07 Dose: Not Given Documented by: Christel Borden (Christel Borden Medicated Pads 100/Jar) 1 pad TOP ONETIME ONE Stop: 03/16/21 20:27 Last Admin: 03/16/21 21:45 Dose: 1 pad Documented by: - Interaction Infant Disposition, : in Room with Family Infant Interaction: Holding Infant Feeding: Attempted ; Nursed Fair/Poor, Continues to Breastfeed, Difficulty with Latch-on, Encouraged to Breastfeed Support Person: - Recovery Exam Fundal Tone: Firm Fundal Level: 1 Fingerbreadths Below Umbilicus Fundal Placement: Midline Lochia Amount: Small Lochia Color: Rubra/Red Perineum Description: Edematous Episiotomy/Laceration: Approximated Bladder Status: Voiding Urinary Elimination: Voided Other Urinary Elimination, : DTV - Exam General: Alert, Oriented HEENT: Pupils Equal, Pupils Reactive, EOMI, Mucous Membr. Moist/[place] Neck: Supple Lungs: Clear to Auscultation, Normal Respiratory Effort Cardiovascular: Regular Rate, Regular Rhythm, Bradycardia GI/Abdominal Exam: Normal Bowel Sounds, Soft, Non-Tender Extremities: Normal Inspection, Normal Range of Motion, Normal Capillary Refill Skin: Warm, Dry, Intact Wound/Incisions: Healing Well Neurological: No New Focal Deficit Psy/Mental Status: Alert, Normal Affect, Normal Mood - Problem List & Annotations (1) (normal spontaneous vaginal delivery) SNOMED Code(s): 91382202, 537900588 Code(s): O80 - ENCOUNTER FOR FULL-TERM UNCOMPLICATED DELIVERY Status: Acute Current Visit: Yes (2) Perineal laceration SNOMED Code(s): 100718375 Code(s): KRF7359 - Status: Acute Current Visit: Yes (3) () SNOMED Code(s): 806824327 Code(s): Z78.9 - OTHER SPECIFIED HEALTH STATUS Status: Acute Current Visit: Yes (4) Diarrhea SNOMED Code(s): 18896777 Code(s): R19.7 - DIARRHEA, UNSPECIFIED Status: Acute Current Visit: Yes (5) Elevated WBC count SNOMED Code(s): 819250091, 461065287 Code(s): D72.829 - ELEVATED WHITE BLOOD CELL COUNT, UNSPECIFIED Status: Acute Current Visit: Yes (6) Nausea and vomiting SNOMED Code(s): 52034626 Code(s): R11.2 - NAUSEA WITH VOMITING, UNSPECIFIED Status: Acute Current Visit: Yes (7) SNOMED Code(s): 79488136 Code(s): Z34.90 - ENCNTR FOR SUPRVSN OF NORMAL , UNSP, UNSP TRIMESTER Status: Acute Current Visit: Yes Qualifiers: Weeks of gestation: 39 weeks Qualified Code(s): Z3A.39 - 39 weeks gestation of (8) SROM (spontaneous rupture of membranes) SNOMED Code(s): 576268293 Code(s): XZF7074 - Status: Acute Current Visit: Yes - My Orders Last 24 Hours: My Active Orders 03/16/21 16:15 Oxytocin/Normal Saline [Pitocin in NS 20 Units/1,000 ML] 20 unit in 1,000 ml IV TITRATE - Assessment Assessment:: error entered in wrong area of chart- Assessment- 03/16/2021 without complications LGA 2nd degree perineal laceration Fundus firm and bleeding decreasing 03/17/21 Recovering well from with support from nursing FFM at -1 with small amount of rubra Laceration repair well approximated with no signs of infection - Plan Plan:: 03/16/2021 25 yo here at 39 0/7 weeks with SROM. Patient had been here last evening with nausea and vomiting and had went home after IV fluids and zofran and contractions had stopped and she felt better, then at 0430 her water broke at home and she called and was directed to come back in to labor and delivery. On arrival patient had positive Amnisure SVE was unchanged from night before Patient was still struggling with nausea and vomiting FHTs category one Labs-AB positive, Hep B neg, Hep C neg, HIV neg, RPR nonreactive, Rubella Immune, GBS negative WBC-18.0 Plan- Monitor for active labor Monitor FHTs Start D5LR for dehydration Oral cytotec times two doses Pain management per patient request Plan and anticipate a vaginal delivery 03/17/21 Routine cares Encourage and support Monitor bleeding closely Expect discharge in 48 hours due to high WBC CBC and BMP in AM <Shirin Keita - Last Filed: 03/17/21 09:29> - Patient Data Vital Signs - Most Recent: Last Vital Signs Temp 36.5 C 03/17/21 03:33 Pulse 77 03/17/21 03:33 Resp 16 03/17/21 03:33 BP 103/47 L 03/17/21 03:33 Pulse Ox 98 03/17/21 03:33 I&O - Last 24 Hours: Intake & Output 03/16/21 03/17/21 03/17/21 22:59 06:59 14:59 Output Total 1100 Balance -1100 Lab Results - Last 24 Hours: Laboratory Results - last 24 hr 03/17/21 03/17/21 Range/Units 05:40 05:40 WBC 9.7 (4.5-11.0) K/uL RBC 3.48 (3.30-5.50) M/uL Hgb 10.1 L D (12.0-15.0) g/dL Hct 30.8 L (36.0-48.0) % MCV 89 (80-98) fL MCH 29 (27-31) pg MCHC 33 (32-36) % Plt Count 213 (150-400) K/uL Neut % (Auto) 72.0 H (36-66) % Lymph % (Auto) 15.1 L (24-44) % [place] % (Auto) 12.3 H (2-6) % Eos % (Auto) 0.5 L (2-4) % Baso % (Auto) 0.1 (0-1) % Sodium 135 L (140-148) mmol/L Potassium 3.9 (3.6-5.2) mmol/L Chloride 104 (100-108) mmol/L Carbon Dioxide 22 (21-32) mmol/L Anion Gap 12.9 (5.0-14.0) mmol/L BUN 4 L D (7-18) mg/dL Creatinine 0.5 L (0.6-1.0) mg/dL Est Cr Clr Drug Dosing 187.61 mL/min Estimated GFR (MDRD) > 60 (>60) Glucose 78 (74-106) mg/dL Calcium 7.2 L (8.5-10.1) mg/dL Total Bilirubin 0.2 (0.2-1.0) mg/dL AST 24 (15-37) U/L ALT 21 (12-78) U/L Alkaline Phosphatase 89 (46-116) U/L Total Protein 4.2 L (6.4-8.2) g/dL Albumin 1.7 L (3.4-5.0) g/dL Globulin 2.5 (2.3-3.5) g/dL Albumin/Globulin Ratio 0.7 L (1.2-2.2) Med Orders - Current: Current Medications Acetaminophen (Acetaminophen 325 Mg Tab) 650 mg PO Q4H PRN PRN Reason: Pain (Mild 1-3) and fever Last Admin: 03/16/21 11:39 Dose: 650 mg Documented by: Acetaminophen (Acetaminophen 325 Mg Tab, 50 Tab Bulk Bottle) 325 - 650 mg PO Q4H PRN PRN Reason: Pain Last Admin: 03/16/21 21:46 Dose: 1 bottle Documented by: Diphenhydramine HCl (Diphenhydramine 50 Mg/Ml Sdv) 25 mg IVPUSH Q6H PRN PRN Reason: Itching Diphenhydramine HCl (Diphenhydramine 50 Mg/Ml Sdv) 50 mg IVPUSH Q6H PRN PRN Reason: Itching Docusate Sodium (Docusate Sodium 100 Mg Cap) 100 mg PO BID PRN PRN Reason: Constipation Ephedrine Sulfate (Ephedrine 50 Mg/Ml Sdv) 10 mg IVPUSH ASDIRECTED PRN PRN Reason: Hypotension Ropivacaine 200 mg/ Premix 100 mls @ 0 mls/hr EPIDUR ASDIRECTED [facility] Last Admin: 03/16/21 19:06 Dose: 12 mls/hr Documented by: Lactated Ringer's (Ringers, Lactated) 1,000 mls @ 100 mls/hr IV ASDIRECTED ASHANTI Last Admin: 03/16/21 15:57 Dose: 100 mls/hr Documented by: Oxytocin/Sodium Chloride (Pitocin In Ns 20 Units/1,000 Ml) 20 unit in 1,000 mls @ 3 mls/hr IV TITRATE ASHANTI; Protocol Last Admin: 03/16/21 17:31 Dose: 3 munits/min, 9 mls/hr Documented by: Ibuprofen (Ibuprofen 200 Mg Tab, 24 Tab Bulk Bottle) 600 mg PO Q6H PRN PRN Reason: Pain Last Admin: 03/16/21 21:45 Dose: 1 bottle Documented by: Lactobacillus Rhamnosus (Lactobacillus Rhamnosus Gg (Probiotic) Cap) 1 cap PO DAILY [facility] Last Admin: 03/17/21 09:13 Dose: 1 cap Documented by: Naloxone HCl (Naloxone 0.4 Mg/Ml Sdv) 0.1 mg IVPUSH ASDIRECTED PRN PRN Reason: Oversedation Ondansetron HCl (Ondansetron 4 Mg/2 Ml Sdv) 4 mg IV Q4H PRN PRN Reason: Nausea/Vomiting Last Admin: 03/16/21 12:50 Dose: 4 mg Documented by: Prenat Multivit/[place]/Iron/Folic Ac ( Multivitamin With Calcium/Folic Acid/Iron Tab) 1 each PO DAILY [facility] Last Admin: 03/17/21 09:13 Dose: 1 each Documented by: Sodium Chloride (Sodium Chloride 0.9% 10 Ml Syringe) 10 ml FLUSH ASDIRECTED PRN PRN Reason: Keep Vein Open Sodium Chloride (Sodium Chloride 0.9% 10 Ml Syringe) 10 ml FLUSH ASDIRECTED PRN PRN Reason: Keep Vein Open Discontinued Medications Benzocaine (Benzocaine 20% [place] 56 Gm Bottle) 0 gm TOP ONETIME ONE Stop: 03/16/21 20:27 Last Admin: 03/16/21 21:44 Dose: 56 gm Documented by: Carboprost Tromethamine (Carboprost Tromethamine 250 Mcg/1 Ml Amp) Confirm Administered Dose 250 mcg .ROUTE .STK-MED ONE Stop: 03/16/21 19:04 Last Admin: 03/16/21 21:07 Dose: Not Given Documented by: Emollient Ointment (Lanolin 100% Cream 40 Gm Tube) 0 gm TOP ONETIME ONE Stop: 03/16/21 20:27 Last Admin: 03/16/21 21:44 Dose: 40 gm Documented by: Dextrose/Lactated Ringer's (Dextrose 5%-Lactated Ringers) 1,000 mls @ 100 mls/hr IV ASDIRECTED [facility] Last Admin: 03/16/21 08:19 Dose: 100 mls/hr Documented by: Penicillin G Potassium 5 (millunits/ Sodium Chloride) 100 mls @ 200 mls/hr IV ONETIME ONE Stop: 03/16/21 10:14 Last Admin: 03/16/21 09:56 Dose: 200 mls/hr Documented by: Penicillin G Potassium 2.5 (millunits/ Sodium Chloride) 50 mls @ 100 mls/hr IV Q4H [facility] Last Admin: 03/16/21 18:56 Dose: 100 mls/hr Documented by: Lactated Ringer's (Ringers, Lactated) 500 mls @ 999 mls/hr IV BOLUS ONE Stop: 03/16/21 12:02 Last Admin: 03/16/21 11:36 Dose: 999 mls/hr Documented by: Lactated Ringer's (Ringers, Lactated) 1,000 mls @ 999 mls/hr IV .BOLUS ONE Stop: 03/16/21 13:53 Last Admin: 03/16/21 13:07 Dose: 999 mls/hr Documented by: Ropivacaine (Naropin 0.2%) Confirm Administered Dose 100 mls @ as directed .ROUTE .STK-MED ONE Stop: 03/16/21 13:42 Methylergonovine Maleate (Methylergonovine 0.2 Mg/1 Ml Amp) Confirm Administered Dose 0.2 mg .ROUTE .STK-MED ONE Stop: 03/16/21 19:04 Last Admin: 03/16/21 21:08 Dose: Not Given Documented by: Misoprostol (Misoprostol 25 Mcg (1/4 Of 100 Mcg) Tab) 25 mcg PO ONETIME ONE Stop: 03/16/21 07:47 Last Admin: 03/16/21 08:16 Dose: 25 mcg Documented by: Misoprostol (Misoprostol 25 Mcg (1/4 Of 100 Mcg) Tab) 25 mcg PO ONETIME ONE Stop: 03/16/21 10:01 Last Admin: 03/16/21 10:23 Dose: 25 mcg Documented by: Misoprostol (Misoprostol 25 Mcg (1/4 Of 100 Mcg) Tab) Confirm Administered Dose 25 mcg .ROUTE .STK-MED ONE Stop: 03/16/21 10:21 Last Admin: 03/16/21 11:17 Dose: Not Given Documented by: Misoprostol (Misoprostol 200 Mcg Tab) Confirm Administered Dose 800 mcg .ROUTE .STK-MED ONE Stop: 03/16/21 19:03 Last Admin: 03/16/21 21:07 Dose: Not Given Documented by: Christel Borden ([place] Medicated Pads 100/Jar) 1 pad TOP ONETIME ONE Stop: 03/16/21 20:27 Last Admin: 03/16/21 21:45 Dose: 1 pad Documented by: - Exam General: Cooperative - Problem List & Annotations (1) SNOMED Code(s): 06460895 Code(s): Z34.90 - ENCNTR FOR SUPRVSN OF NORMAL , UNSP, UNSP TRIMESTER Status: Acute Current Visit: Yes Qualifiers: Weeks of gestation: 39 weeks Qualified Code(s): Z3A.39 - 39 weeks gestation of (2) SROM (spontaneous rupture of membranes) SNOMED Code(s): 859505970 Code(s): HCW9290 - Status: Acute Current Visit: Yes (3) Nausea and vomiting SNOMED Code(s): 86165932 Code(s): R11.2 - NAUSEA WITH VOMITING, UNSPECIFIED Status: Acute Current Visit: Yes - Problem List Review Problem List Initiated/Reviewed/Updated: Yes - My Orders Last 24 Hours: My Active Orders 03/16/21 12:53 Communication Order [RC] ASDIRECTED Communication Order [RC] ROUTINE Communication Order [RC] ROUTINE Communication Order [RC] ROUTINE Oxygen Therapy [RC] ASDIRECTED Pulse Oximetry [RC] ASDIRECTED Vital Signs [RC] PER UNIT ROUTINE Naloxone [Narcan] 0.1 mg IVPUSH ASDIRECTED PRN Sodium Chloride 0.9% [Saline Flush] 10 ml FLUSH ASDIRECTED PRN diphenhydrAMINE [Benadryl] 25 mg IVPUSH Q6H PRN diphenhydrAMINE [Benadryl] 50 mg IVPUSH Q6H PRN ePHEDrine [ePHEDrine sulfate] 10 mg IVPUSH ASDIRECTED PRN Epidural Catheter Management [OM.PC] Routine Epidural Catheter Management [OM.PC] Urgent Peripheral IV Insertion Pediatric [OM.PC] Routine 03/16/21 12:54 Peripheral IV Care [RC] Q12H 03/16/21 13:00 Insert Urinary Catheter [OM.PC] ASDIRECTED Ropivacaine [Naropin 0.2%] 200 mg Premix Bag 1 bag EPIDUR ASDIRECTED 03/16/21 16:00 Lactated Ringers [Ringers, Lactated] 1,000 ml IV ASDIRECTED 03/16/21 20:26 May Shower [RC] ASDIRECTED Up ad Roselia [RC] ASDIRECTED Consult to Restrictive Preparation Operator [CONS] Routine Acetaminophen [Tylenol Bulk Bottle] 325 - 650 mg PO Q4H PRN Docusate Sodium [Colace] 100 mg PO BID PRN Ibuprofen [Motrin Bulk Bottle] 600 mg PO Q6H PRN Assess Lochia [WOMSER] Per Unit Routine Assess Uterine Involution [WOMSER] Per Unit Routine 03/16/21 20:27 Patient Status [ADT] Routine Vital Signs [RC] PFP 03/16/21 20:28 Ice Therapy [OM.PC] Per Unit Routine Perineal Care [OM.PC] Per Unit Routine Sitz Bath [OM.PC] Per Unit Routine 03/17/21 09:00 Lactobacillus Rhamnosus GG [Culturelle] 1 cap PO DAILY Vit with Ca/FA/Iron [ Plus Iron] 1 each PO DAILY - Assessment Assessment:: 03/17/2021 WBC count down to 9.7 today from 18.0 on admission - Plan Plan:: 03/17/2021 Above plan of care was for 03/16/2021 after delivery Todays plan of care -Continue routine cares - to work with -Continue to monitor for signs and symptoms of infection -plan discharge late tomorrow if stable
--- NOTE | 2021-03-18 09:59 | PCM.PNPP ---
<Lorena White - Last Filed: 03/18/21 09:53> - General Info Date of Service: 03/18/21 Admission Dx/Problem (Free Text): Functional Status: Reports: Pain Controlled, Tolerating Diet, Ambulating, Urinating - Review of Systems General: Reports: No Symptoms HEENT: Reports: No Symptoms Pulmonary: Reports: No Symptoms Cardiovascular: Reports: No Symptoms Gastrointestinal: Reports: Diarrhea Genitourinary: Reports: No Symptoms Musculoskeletal: Reports: No Symptoms Skin: Reports: No Symptoms Neurological: Reports: No Symptoms Psychiatric: Reports: No Symptoms - General Info Date of Service: 03/18/21 - Patient Data Vital Signs - Most Recent: Last Vital Signs Temp 95.9 F L 03/18/21 07:00 Pulse 80 03/18/21 07:00 Resp 18 03/18/21 07:00 BP 113/58 L 03/18/21 07:00 Pulse Ox 99 03/18/21 07:00 Weight - Most Recent: 99.79 kg Med Orders - Current: Current Medications Acetaminophen (Acetaminophen 325 Mg Tab) 650 mg PO Q4H PRN PRN Reason: Pain (Mild 1-3) and fever Last Admin: 03/16/21 11:39 Dose: 650 mg Documented by: Acetaminophen (Acetaminophen 325 Mg Tab, 50 Tab Bulk Bottle) 325 - 650 mg PO Q4H PRN PRN Reason: Pain Last Admin: 03/16/21 21:46 Dose: 1 bottle Documented by: Diphenhydramine HCl (Diphenhydramine 50 Mg/Ml Sdv) 25 mg IVPUSH Q6H PRN PRN Reason: Itching Diphenhydramine HCl (Diphenhydramine 50 Mg/Ml Sdv) 50 mg IVPUSH Q6H PRN PRN Reason: Itching Docusate Sodium (Docusate Sodium 100 Mg Cap) 100 mg PO BID PRN PRN Reason: Constipation Ephedrine Sulfate (Ephedrine 50 Mg/Ml Sdv) 10 mg IVPUSH ASDIRECTED PRN PRN Reason: Hypotension Ropivacaine 200 mg/ Premix 100 mls @ 0 mls/hr EPIDUR ASDIRECTED ASHANTI Last Admin: 03/16/21 19:06 Dose: 12 mls/hr Documented by: Lactated Ringer's (Ringers, Lactated) 1,000 mls @ 100 mls/hr IV ASDIRECTED ASHANTI Last Admin: 03/16/21 15:57 Dose: 100 mls/hr Documented by: Oxytocin/Sodium Chloride (Pitocin In Ns 20 Units/1,000 Ml) 20 unit in 1,000 mls @ 3 mls/hr IV TITRATE ASHANTI; Protocol Last Admin: 03/16/21 17:31 Dose: 3 munits/min, 9 mls/hr Documented by: Ibuprofen (Ibuprofen 200 Mg Tab, 24 Tab Bulk Bottle) 600 mg PO Q6H PRN PRN Reason: Pain Last Admin: 03/16/21 21:45 Dose: 1 bottle Documented by: Lactobacillus Rhamnosus (Lactobacillus Rhamnosus Gg (Probiotic) Cap) 1 cap PO DAILY [facility] Last Admin: 03/17/21 09:13 Dose: 1 cap Documented by: Naloxone HCl (Naloxone 0.4 Mg/Ml Sdv) 0.1 mg IVPUSH ASDIRECTED PRN PRN Reason: Oversedation Ondansetron HCl (Ondansetron 4 Mg/2 Ml Sdv) 4 mg IV Q4H PRN PRN Reason: Nausea/Vomiting Last Admin: 03/16/21 12:50 Dose: 4 mg Documented by: Prenat Multivit/[place]/Iron/Folic Ac ( Multivitamin With Calcium/Folic Acid/Iron Tab) 1 each PO DAILY [facility] Last Admin: 03/17/21 09:13 Dose: 1 each Documented by: Sodium Chloride (Sodium Chloride 0.9% 10 Ml Syringe) 10 ml FLUSH ASDIRECTED PRN PRN Reason: Keep Vein Open Sodium Chloride (Sodium Chloride 0.9% 10 Ml Syringe) 10 ml FLUSH ASDIRECTED PRN PRN Reason: Keep Vein Open Discontinued Medications Benzocaine (Benzocaine 20% Top [place] 56 Gm Bottle) 0 gm TOP ONETIME ONE Stop: 03/16/21 20:27 Last Admin: 03/16/21 21:44 Dose: 56 gm Documented by: Carboprost Tromethamine (Carboprost Tromethamine 250 Mcg/1 Ml Amp) Confirm Administered Dose 250 mcg .ROUTE .STK-MED ONE Stop: 03/16/21 19:04 Last Admin: 03/16/21 21:07 Dose: Not Given Documented by: Emollient Ointment (Lanolin 100% Cream 40 Gm Tube) 0 gm TOP ONETIME ONE Stop: 03/16/21 20:27 Last Admin: 03/16/21 21:44 Dose: 40 gm Documented by: Dextrose/Lactated Ringer's (Dextrose 5%-Lactated Ringers) 1,000 mls @ 100 mls/hr IV ASDIRECTED [facility] Last Admin: 03/16/21 08:19 Dose: 100 mls/hr Documented by: Penicillin G Potassium 5 (millunits/ Sodium Chloride) 100 mls @ 200 mls/hr IV ONETIME ONE Stop: 03/16/21 10:14 Last Admin: 03/16/21 09:56 Dose: 200 mls/hr Documented by: Penicillin G Potassium 2.5 (millunits/ Sodium Chloride) 50 mls @ 100 mls/hr IV Q4H [facility] Last Admin: 03/16/21 18:56 Dose: 100 mls/hr Documented by: Lactated Ringer's (Ringers, Lactated) 500 mls @ 999 mls/hr IV BOLUS ONE Stop: 03/16/21 12:02 Last Admin: 03/16/21 11:36 Dose: 999 mls/hr Documented by: Lactated Ringer's (Ringers, Lactated) 1,000 mls @ 999 mls/hr IV .BOLUS ONE Stop: 03/16/21 13:53 Last Admin: 03/16/21 13:07 Dose: 999 mls/hr Documented by: Ropivacaine (Naropin 0.2%) Confirm Administered Dose 100 mls @ as directed .ROUTE .STK-MED ONE Stop: 03/16/21 13:42 Methylergonovine Maleate (Methylergonovine 0.2 Mg/1 Ml Amp) Confirm Administered Dose 0.2 mg .ROUTE .STK-MED ONE Stop: 03/16/21 19:04 Last Admin: 03/16/21 21:08 Dose: Not Given Documented by: Misoprostol (Misoprostol 25 Mcg (1/4 Of 100 Mcg) Tab) 25 mcg PO ONETIME ONE Stop: 03/16/21 07:47 Last Admin: 03/16/21 08:16 Dose: 25 mcg Documented by: Misoprostol (Misoprostol 25 Mcg (1/4 Of 100 Mcg) Tab) 25 mcg PO ONETIME ONE Stop: 03/16/21 10:01 Last Admin: 03/16/21 10:23 Dose: 25 mcg Documented by: Misoprostol (Misoprostol 25 Mcg (1/4 Of 100 Mcg) Tab) Confirm Administered Dose 25 mcg .ROUTE .STK-MED ONE Stop: 03/16/21 10:21 Last Admin: 03/16/21 11:17 Dose: Not Given Documented by: Misoprostol (Misoprostol 200 Mcg Tab) Confirm Administered Dose 800 mcg .ROUTE .STK-MED ONE Stop: 03/16/21 19:03 Last Admin: 03/16/21 21:07 Dose: Not Given Documented by: Christel Borden ([place] Suha Medicated Pads 100/Jar) 1 pad TOP ONETIME ONE Stop: 03/16/21 20:27 Last Admin: 03/16/21 21:45 Dose: 1 pad Documented by: - Infant Interaction Infant Disposition, : [place] in Room with Family Interaction: Holding Infant Feeding: Attempted ; Nursed Fair/Poor, Continues to Breastfeed, Encouraged to Breastfeed Support Person: - Recovery Exam Fundal Tone: Firm Fundal Level: 1 Fingerbreadths Below Umbilicus Fundal Placement: Midline Lochia Amount: Scant, Small Lochia Color: Rubra/Red Perineum Description: Edematous Episiotomy/Laceration: Approximated Bladder Status: Voiding Urinary Elimination: Voided Other Urinary Elimination, : DTV - Exam General: Alert HEENT: Pupils Equal, Pupils Reactive, EOMI, Mucous Membr. Moist/[place] Neck: Supple Lungs: Clear to Auscultation, Normal Respiratory Effort Cardiovascular: Regular Rate, Regular Rhythm GI/Abdominal Exam: Normal Bowel Sounds, Soft, Non-Tender Extremities: Normal Inspection, Normal Range of Motion, Normal Capillary Refill Skin: Warm, Dry, Intact Wound/Incisions: Healing Well Neurological: No New Focal Deficit Psy/Mental Status: Alert, Normal Affect, Normal Mood - Problem List & Annotations (1) (normal spontaneous vaginal delivery) SNOMED Code(s): 21708348, 971044146 Code(s): O80 - ENCOUNTER FOR FULL-TERM UNCOMPLICATED DELIVERY Status: Acute Current Visit: Yes (2) Perineal laceration SNOMED Code(s): 922393464 Code(s): EKV9920 - Status: Acute Current Visit: Yes (3) (infant) SNOMED Code(s): 293249990 Code(s): Z78.9 - OTHER SPECIFIED HEALTH STATUS Status: Acute Current Visit: Yes (4) Diarrhea SNOMED Code(s): 89851770 Code(s): R19.7 - DIARRHEA, UNSPECIFIED Status: Acute Current Visit: Yes (5) Elevated WBC count SNOMED Code(s): 255105629, 398846393 Code(s): D72.829 - ELEVATED WHITE BLOOD CELL COUNT, UNSPECIFIED Status: Acute Current Visit: Yes (6) Nausea and vomiting SNOMED Code(s): 74201607 Code(s): R11.2 - NAUSEA WITH VOMITING, UNSPECIFIED Status: Acute Current Visit: Yes (7) SNOMED Code(s): 78152362 Code(s): Z34.90 - ENCNTR FOR SUPRVSN OF NORMAL , UNSP, UNSP TRIMESTER Status: Acute Current Visit: Yes Qualifiers: Weeks of gestation: 39 weeks Qualified Code(s): Z3A.39 - 39 weeks gestation of (8) SROM (spontaneous rupture of membranes) SNOMED Code(s): 489850461 Code(s): XMH4817 - Status: Acute Current Visit: Yes - Assessment Assessment:: 03/17/2021 WBC count down to 9.7 today from 18.0 on admission 03/18/21 without complications 2nd degree laceration repaired and healing well Adequate pain control with tylenol/ibuprofen well Voiding and passing gas Diarrhea has improved slightly and no nausea/vomiting today Iva feels well overall today and is excited to go home Great partner support - Plan Plan:: 03/17/2021 Above plan of care was for 03/16/2021 after delivery Todays plan of care -Continue routine cares - to work with -Continue to monitor for signs and symptoms of infection -plan discharge late tomorrow if stable 03/18/21 -Continue routine cares -Continue to work with on -Continue to monitor for signs and symptoms of infection -Plan to discharge later today <BevjamilaMaryamShirin - Last Filed: 03/18/21 10:32> - Patient Data Vital Signs - Most Recent: Last Vital Signs Temp 35.5 C L 03/18/21 07:00 Pulse 80 03/18/21 07:00 Resp 18 03/18/21 07:00 BP 113/58 L 03/18/21 07:00 Pulse Ox 99 03/18/21 07:00 Med Orders - Current: Current Medications Acetaminophen (Acetaminophen 325 Mg Tab) 650 mg PO Q4H PRN PRN Reason: Pain (Mild 1-3) and fever Last Admin: 03/16/21 11:39 Dose: 650 mg Documented by: Acetaminophen (Acetaminophen 325 Mg Tab, 50 Tab Bulk Bottle) 325 - 650 mg PO Q4H PRN PRN Reason: Pain Last Admin: 03/16/21 21:46 Dose: 1 bottle Documented by: Diphenhydramine HCl (Diphenhydramine 50 Mg/Ml Sdv) 25 mg IVPUSH Q6H PRN PRN Reason: Itching Diphenhydramine HCl (Diphenhydramine 50 Mg/Ml Sdv) 50 mg IVPUSH Q6H PRN PRN Reason: Itching Docusate Sodium (Docusate Sodium 100 Mg Cap) 100 mg PO BID PRN PRN Reason: Constipation Ephedrine Sulfate (Ephedrine 50 Mg/Ml Sdv) 10 mg IVPUSH ASDIRECTED PRN PRN Reason: Hypotension Ropivacaine 200 mg/ Premix 100 mls @ 0 mls/hr EPIDUR ASDIRECTED A[facility]ANTI Last Admin: 03/16/21 19:06 Dose: 12 mls/hr Documented by: Lactated Ringer's (Ringers, Lactated) 1,000 mls @ 100 mls/hr IV ASDIRECTED [facility] Last Admin: 03/16/21 15:57 Dose: 100 mls/hr Documented by: Oxytocin/Sodium Chloride (Pitocin In Ns 20 Units/1,000 Ml) 20 unit in 1,000 mls @ 3 mls/hr IV TITRATE [facility]; Protocol Last Admin: 03/16/21 17:31 Dose: 3 munits/min, 9 mls/hr Documented by: Ibuprofen (Ibuprofen 200 Mg Tab, 24 Tab Bulk Bottle) 600 mg PO Q6H PRN PRN Reason: Pain Last Admin: 03/16/21 21:45 Dose: 1 bottle Documented by: Lactobacillus Rhamnosus (Lactobacillus Rhamnosus Gg (Probiotic) Cap) 1 cap PO DAILY [facility] Last Admin: 03/18/21 10:20 Dose: 1 cap Documented by: Naloxone HCl (Naloxone 0.4 Mg/Ml Sdv) 0.1 mg IVPUSH ASDIRECTED PRN PRN Reason: Oversedation Ondansetron HCl (Ondansetron 4 Mg/2 Ml Sdv) 4 mg IV Q4H PRN PRN Reason: Nausea/Vomiting Last Admin: 03/16/21 12:50 Dose: 4 mg Documented by: Prenat Multivit/[place]/Iron/Folic Ac ( Multivitamin With Calcium/Folic Acid/Iron Tab) 1 each PO DAILY [facility] Last Admin: 03/18/21 10:20 Dose: 1 each Documented by: Sodium Chloride (Sodium Chloride 0.9% 10 Ml Syringe) 10 ml FLUSH ASDIRECTED PRN PRN Reason: Keep Vein Open Sodium Chloride (Sodium Chloride 0.9% 10 Ml Syringe) 10 ml FLUSH ASDIRECTED PRN PRN Reason: Keep Vein Open Discontinued Medications Benzocaine (Benzocaine 20% Top [place] 56 Gm Bottle) 0 gm TOP ONETIME ONE Stop: 03/16/21 20:27 Last Admin: 03/16/21 21:44 Dose: 56 gm Documented by: Carboprost Tromethamine (Carboprost Tromethamine 250 Mcg/1 Ml Amp) Confirm Administered Dose 250 mcg .ROUTE .STK-MED ONE Stop: 03/16/21 19:04 Last Admin: 03/16/21 21:07 Dose: Not Given Documented by: Emollient Ointment (Lanolin 100% Cream 40 Gm Tube) 0 gm TOP ONETIME ONE Stop: 03/16/21 20:27 Last Admin: 03/16/21 21:44 Dose: 40 gm Documented by: Dextrose/Lactated Ringer's (Dextrose 5%-Lactated Ringers) 1,000 mls @ 100 mls/hr IV ASDIRECTED [facility] Last Admin: 03/16/21 08:19 Dose: 100 mls/hr Documented by: Penicillin G Potassium 5 (millunits/ Sodium Chloride) 100 mls @ 200 mls/hr IV ONETIME ONE Stop: 03/16/21 10:14 Last Admin: 03/16/21 09:56 Dose: 200 mls/hr Documented by: Penicillin G Potassium 2.5 (millunits/ Sodium Chloride) 50 mls @ 100 mls/hr IV Q4H [facility] Last Admin: 03/16/21 18:56 Dose: 100 mls/hr Documented by: Lactated Ringer's (Ringers, Lactated) 500 mls @ 999 mls/hr IV BOLUS ONE Stop: 03/16/21 12:02 Last Admin: 03/16/21 11:36 Dose: 999 mls/hr Documented by: Lactated Ringer's (Ringers, Lactated) 1,000 mls @ 999 mls/hr IV .BOLUS ONE Stop: 03/16/21 13:53 Last Admin: 03/16/21 13:07 Dose: 999 mls/hr Documented by: Ropivacaine (Naropin 0.2%) Confirm Administered Dose 100 mls @ as directed .ROUTE .STK-MED ONE Stop: 03/16/21 13:42 Methylergonovine Maleate (Methylergonovine 0.2 Mg/1 Ml Amp) Confirm Administered Dose 0.2 mg .ROUTE .STK-MED ONE Stop: 03/16/21 19:04 Last Admin: 03/16/21 21:08 Dose: Not Given Documented by: Misoprostol (Misoprostol 25 Mcg (1/4 Of 100 Mcg) Tab) 25 mcg PO ONETIME ONE Stop: 03/16/21 07:47 Last Admin: 03/16/21 08:16 Dose: 25 mcg Documented by: Misoprostol (Misoprostol 25 Mcg (1/4 Of 100 Mcg) Tab) 25 mcg PO ONETIME ONE Stop: 03/16/21 10:01 Last Admin: 03/16/21 10:23 Dose: 25 mcg Documented by: Misoprostol (Misoprostol 25 Mcg (1/4 Of 100 Mcg) Tab) Confirm Administered Dose 25 mcg .ROUTE .STK-MED ONE Stop: 03/16/21 10:21 Last Admin: 03/16/21 11:17 Dose: Not Given Documented by: Misoprostol (Misoprostol 200 Mcg Tab) Confirm Administered Dose 800 mcg .ROUTE .STK-MED ONE Stop: 03/16/21 19:03 Last Admin: 03/16/21 21:07 Dose: Not Given Documented by: Christel Borden ([place] Medicated Pads 100/Jar) 1 pad TOP ONETIME ONE Stop: 03/16/21 20:27 Last Admin: 03/16/21 21:45 Dose: 1 pad Documented by: - Problem List & Annotations (1) SNOMED Code(s): 38533824 Code(s): Z34.90 - ENCNTR FOR SUPRVSN OF NORMAL , UNSP, UNSP TRIMESTER Status: Acute Current Visit: Yes Qualifiers: Weeks of gestation: 39 weeks Qualified Code(s): Z3A.39 - 39 weeks gestation of (2) SROM (spontaneous rupture of membranes) SNOMED Code(s): 775219173 Code(s): WXA5069 - Status: Acute Current Visit: Yes (3) Nausea and vomiting SNOMED Code(s): 44357584 Code(s): R11.2 - NAUSEA WITH VOMITING, UNSPECIFIED Status: Acute Current Visit: Yes - Problem List Review Problem List Initiated/Reviewed/Updated: Yes - Assessment Assessment:: Desires discharge home today
[2021-03-18] MEDS: Prenatal Multivitamin with Calcium/Folic Acid/Iron Tab PO SCH (10:20)
[2021-03-18] MEDS: Lactobacillus Rhamnosus GG (Probiotic) Cap PO SCH (10:20)
[2021-03-18 16:42] VITALS: BP 123/59; PULSE 75
== END 2021-03-18 16:40 | disposition home or self-care (01) | DRG 560 ==
LOC: JP.OBCHECK 06:21 → JP.OB 06:22 → JP.OBCHECK 07:43 → JP.OB 09:48 → OBSVTOIN 19:38 → JP.MS 03-17 00:16
PROVIDERS: ADMIT Advanced Practice Midwife; ATTEND Advanced Practice Midwife
PROC: 10E0XZZ Delivery of Products of Conception, External Approach (ICD-10-PCS; principal; 2021-03-16)
PROC: 10907ZC Drainage of Amniotic Fluid, Therapeutic from Products of Conception, Via Natural or Artificial Opening (ICD-10-PCS; 2021-03-16)
PROC: 3E0R3BZ Introduction of Anesthetic Agent into Spinal Canal, Percutaneous Approach (ICD-10-PCS; 2021-03-16)
DX: O70.1 Second degree perineal laceration during delivery (principal); Z3A.39 39 weeks gestation of pregnancy; Z37.0 Single live birth
CPT/HCPCS: 36415; 51701; 80053; 84112; 85025; 99211; A9270-GY; J2405; J2540; J2590; J2795; J7120; J7121